=== PATIENT | male | born 1965 | race Hispanic/Latino ===

== ENCOUNTER 2017-08-18 00:41 | Emergency (ER) | payer OTHER ==
[2017-08-18 01:15] LABS: BASOPHILS % (AUTO) 0.9 % (0.0-5.0); EOSINOPHILS % (AUTO) 1.7 % (0.0-8.0); HEMATOCRIT 50.1 % (42-54); LYMPHOCYTES % (AUTO) 35.8 % (21.0-51.0); MEAN CORPUSCULAR HEMOGLOBIN 32.1 pg (27.0-33.0); MEAN CORPUSCULAR HGB CONC 34.6 g/dL (32.0-36.0); MEAN CORPUSCULAR VOLUME 92.8 fL (79-99); MONOCYTES % (AUTO) 12.7 % (3.0-13.0); NEUTROPHILS % (AUTO) 48.9 % (40.0-77.0); NUCLEATED RED BLOOD CELLS 0.1 % (0.0-0.19); PLATELET COUNT (AUTO) 442 K/uL (130-400); RED CELL DISTRIBUTION WIDTH 12.4 % (11.0-15.5); WHITE BLOOD COUNT (AUTO) 13.5 K/uL (4.8-10.8)
[2017-08-18] MEDS ORDERED: SODIUM CHLORIDE 0.9% 1000ML 1,000 ML IV ONE (01:25)
[2017-08-18] MEDS ORDERED: MORPHINE SULFATE 2 MG/ML 1ML SYG ONE (01:26)
[2017-08-18 01:37] LABS: INR 0.93 (0.85-1.15); PARTIAL THROMBOPLASTIN TIME 32.7 SEC (26.3-35.5); POTASSIUM 3.3 mmol/L (3.5-5.1); PROTHROMBIN TIME 9.8 SEC (9.6-11.6)
[2017-08-18 01:41] LABS: ALBUMIN 3.1 g/dL (3.5-5.0); BILIRUBIN,TOTAL 0.4 mg/dL (0.2-1.0); TOTAL PROTEIN, SERUM 8.1 g/dL (6.0-8.3)
[2017-08-18] MEDS ORDERED: LEVOFLOXACIN 500 MG/D5W 100 ML 100 ML ONE (02:26)
[2017-08-18] MEDS ORDERED: MORPHINE SULFATE 4 MG/1ML SYG ONE (03:12)
[2017-08-18 03:15] LABS: APPEARANCE,URINE Clear (CLEAR); BILIRUBIN,URINE Negative (NEGATIVE); COLOR,URINE Yellow (YELLOW); GLUCOSE, URINE (UA) Negative (NEGATIVE); KETONES,URINE Negative (NEGATIVE); LEUKOCYTE ESTERASE ,URINE Trace (NEGATIVE); NITRATE,URINE Negative (NEGATIVE); OCCULT BLOOD,URINE Negative (NEGATIVE); PROTEIN,URINE Trace (NEGATIVE)
[2017-08-18 03:22] LABS: BACTERIA,URINE None Seen /HPF (None Seen); RBC,URINE 0-1 /HPF (0-1); SQUAMOUS EPITHELIAL CELL,UR Rare /LPF (0-2); WBC,URINE 0-1 /HPF (0-1)
[2017-08-18 03:23] LABS: MUCUS,URINE Rare LPF (None Seen)
== END 2017-08-18 03:29 | disposition home or self-care (01) ==
LOC: EDH 00:41
DX: N45.1 Epididymitis (principal); R11.10 Vomiting, unspecified; Z72.0 Tobacco use
CPT/HCPCS: 36415; 76705; 76870; 80053; 81001; 85025; 85610; 85730; 96361; 96365; 96372; 96375; 96376; 99285; J1956; J2270; J7030

== ENCOUNTER 2017-12-15 20:59 | Emergency (ER) | payer SELFPAY ==
[2017-12-15] MEDS ORDERED: CLINDAMYCIN 600 MG/D5% WATER 50 ML IV ONE (21:34)
[2017-12-15] MEDS ORDERED: IBUPROFEN 600 MG TABLET ONE (22:00)
== END 2017-12-15 23:04 | disposition home or self-care (01) ==
LOC: EDH 20:59
DX: L03.012 Cellulitis of left finger (principal); F17.200 Nicotine dependence, unspecified, uncomplicated
CPT/HCPCS: 73140; 96365; 99284; J3490

== ENCOUNTER 2017-12-16 15:29 | Emergency (ER) | payer SELFPAY | END 2017-12-16 16:13 | disposition home or self-care (01) | LOC: EDH 15:29 | DX: L03.012 Cellulitis of left finger (principal); Z72.0 Tobacco use | CPT/HCPCS: 99281 ==

== ENCOUNTER 2022-05-08 00:42 | Emergency (ER) | payer OTHER ==
[~2022-05-08] VITALS: Ht 165.1 cm; Wt 80.5 kg
[2022-05-08 01:59] VITALS: BP 150/83
== END 2022-05-08 02:01 | disposition home or self-care (01) ==
LOC: EDH 00:42
DX: S71.112D Laceration without foreign body, left thigh, subsequent encounter (principal); Z98.890 Other specified postprocedural states; X58.XXXD Exposure to other specified factors, subsequent encounter

== ENCOUNTER → 2022-05-28 | Emergency (ER) | payer OTHER | END | disposition left against medical advice (07) | LOC: EDH 13:37 | DX: R42 Dizziness and giddiness (principal); Z53.21 Procedure and treatment not carried out due to patient leaving prior to being seen by health care provider ==